=== PATIENT | female | born 1960 | race Caucasian/White ===

== ENCOUNTER → 2016-05-26 | Outpatient (CLI) | payer OTHER ==
[2016-05-26 10:42] LABS: Anisocytosis Slight; CH 25.8; CHCM 32.1; HCT 33.8 % (34.0-46.0); HDW 3.48; Hypochromasia Slight; MCH 26.3 pg (25.0-35.0); MCHC 32.5 g/dL (31.0-37.0); Mean Platelet Volume 6.7; Poikilocytosis Slight; RBC 4.18 m/uL (3.80-5.40); RDW 16.4 % (11.5-15.5)
[2016-05-26 11:06] LABS: Potassium 5.1 mmol/L (3.5-5.1)
== END | disposition home or self-care (01) ==
LOC: LABPAT 10:07
PROVIDERS: ATTEND Internal Medicine Interventional Cardiology
DX: Z01.812 Encounter for preprocedural laboratory examination (principal); I25.10 Atherosclerotic heart disease of native coronary artery without angina pectoris
CPT/HCPCS: 80051; 82565; 84520; 85027

== ENCOUNTER 2016-05-30 06:51 | Day surgery (SDC) | payer OTHER ==
[2016-05-28 09:41] VITALS: BMI 44.8
[~2016-05-30 06:51] MED LIST: ALPRAZolam 0.25 MG TAB PO PRN; ALPRAZolam 0.5 MG TAB PO PRN; ASPIRIN 325 MG TAB PO STA; ATORVASTATIN 80 MG TAB PO STA; NITROGLYCERIN SL TABS 0.4 MG TAB SUBLINGUAL PRN; SODIUM CHLORIDE 0.9% 1,000 ML in EMPTY BAG 1 BAG IV ONE
[2016-05-30 07:32] LABS: Glucose,Whole Blood 171 mg/dL (75-99)
[2016-05-30] MEDS ORDERED: diphenhydrAMINE 50 MG/ML 1 ML VIAL ONE (10:31)
[2016-05-30] MEDS ORDERED: LIDOCAINE 2% INJ 20 MG/ML (20 ML MDV) ONE (10:31)
[2016-05-30] MEDS ORDERED: MIDAZOLAM 2 MG/2 ML VIAL ONE (10:31)
[2016-05-30] MEDS ORDERED: VERAPAMIL 2.5 MG/ML 2 ML AMP ONE (10:32)
[2016-05-30] MEDS ORDERED: SODIUM CHLORIDE 0.9% (PF) 10 ML VIAL ONE (10:32)
[2016-05-30] MEDS ORDERED: amLODIPine 5 MG TAB ONE (10:33)
[2016-05-30] MEDS ORDERED: amLODIPine 5 MG TAB PO ONE (10:37)
[2016-05-30] MEDS ORDERED: diphenhydrAMINE 50 MG/ML 1 ML VIAL IVP ONE (11:15)
[2016-05-30] MEDS ORDERED: MIDAZOLAM 2 MG/2 ML VIAL IV ONE (11:15)
[2016-05-30] MEDS ORDERED: LIDOCAINE 2% INJ 20 MG/ML SQ ONE (11:18)
[2016-05-30] MEDS: VERAPAMIL SYRINGE (5 MG/10 ML) INTRAARTER ONE ×2 (11:20→11:51)
[2016-05-30] MEDS: NITROGLYCERIN 1000MCG/10ML SYRINGE INTRACORON ONE ×2 (11:26→11:43)
[2016-05-30] MEDS ORDERED: BIVALIRUDIN BOLUS 250 MG/50 ML IV ONE (11:31)
[2016-05-30] MEDS ORDERED: BIVALIRUDIN 250 MG in SODIUM CHLORIDE 0.9% 50 ML IV ONE (11:32)
[2016-05-30] MEDS ORDERED: PRASUGREL 10 MG TAB ONE (11:46)
[2016-05-30] MEDS ORDERED: PRASUGREL 10 MG TAB PO ONE (11:50)
[2016-05-30] MEDS ORDERED: IOHEXOL 350 MG/ML 100 ML BOTTLE INJ ONE (11:51)
[2016-05-30] MEDS ORDERED: NITROGLYCERIN SL TABS 0.4 MG TAB SUBLINGUAL ONE (11:55)
[2016-05-30] MEDS ORDERED: MAG HYDROX/AL HYDROX/SIMETH 30 ML CUP PO PRN (11:58)
[2016-05-30] MEDS ORDERED: NITROGLYCERIN SL TABS 0.4 MG TAB SUBLINGUAL PRN ×2 (11:58→12:18)
[2016-05-30] MEDS ORDERED: RX INFO: IV CONTRAST WAS GIVEN 1 EACH MISC MISCELLANE PRN (11:58)
[2016-05-30] MEDS ORDERED: amLODIPine 5 MG TAB PO PRN (12:18)
[2016-05-30 17:04] LABS: Glucose,Whole Blood 142 mg/dL (75-99)
[2016-05-30] MEDS: ACETAMINOPHEN TAB 500 MG TAB PO PRN (17:12)
[2016-05-30] MEDS: SODIUM CHLORIDE 0.9% 1,000 ML IV SCH ×2 (17:13→22:10)
[2016-05-30] MEDS: INSULIN LISPRO (humaLOG) 300 UNIT/3 ML VIAL SQ SCH ×2 (17:50→22:09)
--- NOTE | 2016-05-30 20:09 | PTCA ---
DATE OF SERVICE: 05/30/2016 PROCEDURE: 1. Selective coronary angiography of left coronary artery. 2. Percutaneous transluminal coronary angioplasty and stenting of mid LAD calcified lesion. PERFORMED BY: Dr. Frank Jones. CLINICAL INFORMATION: Mrs. Lita Caba is a patient with a known history of type 2 diabetes, hypertension, hypercholesterolemia and a recent non-ST elevation IA who underwent stenting of distal circumflex and obtuse marginal on May 02. She was brought in for a staged intervention of the LAD, which was 80% mid lesion and a calcified segment. PROCEDURE NOTE: Under local anesthesia and strict aseptic precautions, a 6 Hebrew introducer was placed in the right radial artery. Using a left Susan guide catheter, I performed selective coronary angiography of the left system only. I checked for patency of the circumflex at the site of stenting distally and also the obtuse marginal. Both of these were widely patent. Proximal portion of the obtuse marginal had a 40% to 45% stenosis which was unchanged. Flow was brisk. I then turned my attention to the LAD. A BMW wire was used to cross the lesion. Predilatation was performed using a 12 mm long, 2.5 caliber, NC trek balloon at 12 atmospheres. I then deployed a 12 mm long, 2.75 caliber Xience stent at 13 atmospheres. Patient had chest pain and precordial ST elevation. She received Angiomax bolus and infusion as per protocol. Excellent angiographic result was achieved without complication. The sheath was taken out and TR band applied as per protocol with a good saturation in the fingers of the right hand. She was then sent to the room in stable condition. She received 10 mg of Effient and patient was already on Effient to begin with. She was sent to the telemetry unit uneventfully. Excellent angiographic result without complication was achieved.
--- NOTE | 2016-05-30 20:11 | LTR ---
May 30, 2016 RE: Lita Caba Dear Dr. Juan: Thank you for the opportunity to participate in the care of Mrs. Caba. I am pleased to report to you that her previously stented distal circumflex and obtuse marginal were widely patent. I performed stenting of mid LAD with an excellent angiographic result. I expect that she will be discharged tomorrow if she remains stable. Thank you for your referral and please call for questions. With kindest regards, Sincerely, ANTIONE ROONEY MD
[2016-05-30] MEDS ORDERED: ZOLPIDEM 5 MG TAB PO PRN (21:00)
[2016-05-30 21:55] LABS: Glucose,Whole Blood 149 mg/dL (75-99)
[2016-05-31] MEDS: ACETAMINOPHEN TAB 500 MG TAB PO PRN (04:39)
[2016-05-31 06:04] LABS: Anisocytosis Slight; Basophils # (A) 0.1 k/uL (0-0.2); Basophils % (A) 1 %; CH 26.2; CHCM 33.1; Eosinophils # (A) 0.3 k/uL (0-0.7); Eosinophils % (A) 5 %; HCT 30.5 % (34.0-46.0); HDW 3.43; HGB 9.6 gm/dL (11.4-16.0); Hypochromasia Slight; Luc # (Auto) 0.11; Luc % (Auto) 2; Lymphocytes # (A) 1.2 k/uL (1.0-4.8); Lymphocytes % (A) 20 %; MCH 25.2 pg (25.0-35.0); MCHC 31.6 g/dL (31.0-37.0); MCV 79.6 fL (80.0-100.0); Mean Platelet Volume 7.4; Microcytosis Slight; Monocytes # (A) 0.4 k/uL (0-1.0); Monocytes % (A) 6 %; Neutrophils # (A) 3.8 k/uL (1.3-7.7); Neutrophils % (A) 66 %; Poikilocytosis Slight; RBC 3.83 m/uL (3.80-5.40); RDW 16.8 % (11.5-15.5); WBC 5.7 k/uL (3.8-10.6); WBC (Perox) 6.09
[2016-05-31 06:26] LABS: Potassium 4.7 mmol/L (3.5-5.1)
[2016-05-31 06:29] LABS: Glucose,Whole Blood 152 mg/dL (75-99)
[2016-05-31] MEDS: INSULIN LISPRO (humaLOG) 300 UNIT/3 ML VIAL SQ SCH (06:39)
[2016-05-31] MEDS ORDERED: PRASUGREL 10 MG TAB PO SCH ×2 (09:00)
[2016-05-31] MEDS ORDERED: LISINOPRIL 20 MG TAB PO SCH (09:00)
[2016-05-31] MEDS ORDERED: ASPIRIN 81 MG CHEW PO SCH ×2 (09:00)
[2016-05-31] MEDS ORDERED: METOPROLOL SUCCINATE (ER) 50 MG TAB.ER.24H PO SCH (09:00)
[2016-05-31 09:10] VITALS: BP 161/74; PULSE 76; RESP 18; TEMP 97.5
--- NOTE | 2016-05-31 09:51 | DS ---
DATE OF ADMISSION: 05/30/2016 DATE OF DISCHARGE: 05/31/2016 DIAGNOSIS: 1. Unstable angina. 2. History of prior inferior myocardial infarction on May 02. 3. Type 2 diabetes mellitus. 4. Hypertension. 5. Hypercholesterolemia. Mrs. Caba was initially seen by me on May 02 when I performed stenting of a subtotally occluded circumflex in the setting of a myocardial infarction, which was rather subacute. She also had a significant mid LAD lesion and was brought in today electively for the procedure. Patient was already on aspirin and Effient. Procedure was performed uneventfully yesterday. Coronary angiography from the right radial approach revealed that the circumflex and obtuse marginal were widely patent with a 40% to 50% proximal OM lesion that was stable. The circumflex that was stented was widely patent. I then performed stenting of the mid LAD with a drug-eluting stent. A 2.75 caliber, 12 mm long Xience stent was deployed. Excellent angiographic result was achieved without complication. Postprocedure course was uneventful. Her right radial cath site is clean and dry with a palpable pulse. Her laboratory data suggests that the creatinine is 1.23, which is same as a baseline creatinine. Hemoglobin is low but platelet count is good. EKG revealed sinus mechanism, old inferior FL, no acute changes. The patient is doing very well. Blood pressure today is 150/70, pulse rate is 70 per minute. S1, S2 heard normally. Lungs are clear. Abdomen is soft, nontender. Lower extremities reveal normal pulses. No edema. Central nervous system is normal. There is some small area of rash on her feet. I advised to apply a steroid cream over the counter and also take Benadryl if she has itching, which she does not at this time. Right radial cath site is clean and dry. Discharge instructions regarding activity, diet and medications were given. She will be discharged today and I will see the patient in the office on 06/04/16 at 8:15 a.m. She will be discharged today.
[2016-05-31 11:12] LABS: Hemoglobin A1C 6.8 % (4.2-6.1)
[2016-05-31] MEDS ORDERED: ATORVASTATIN 80 MG TAB PO SCH (21:00)
== END 2016-05-31 10:56 | disposition home or self-care (01) ==
LOC: CATHCVL 06:51 → 6SEL 11:50 → CATHCVL 05-31 10:56
PROVIDERS: ATTEND Internal Medicine Interventional Cardiology
DX: I25.110 Atherosclerotic heart disease of native coronary artery with unstable angina pectoris (principal); Z95.5 Presence of coronary angioplasty implant and graft; I25.2 Old myocardial infarction; I10 Essential (primary) hypertension; E78.5 Hyperlipidemia, unspecified; E78.00 Pure hypercholesterolemia, unspecified; E11.9 Type 2 diabetes mellitus without complications; E66.9 Obesity, unspecified; Z68.42 Body mass index [BMI] 45.0-49.9, adult; Z82.49 Family history of ischemic heart disease and other diseases of the circulatory system; Z79.84 Long term (current) use of oral hypoglycemic drugs; Z79.82 Long term (current) use of aspirin; Z79.899 Other long term (current) drug therapy; Z88.2 Allergy status to sulfonamides
CPT/HCPCS: 94760; 93454; 80048; 83036; 85025; C9600; C1769 ×2; C1887; C1725; C1894 ×2; C1874; J2001; J2250; J1200; Q9967; J0583

== ENCOUNTER → 2016-06-04 | Outpatient (CLI) | payer OTHER ==
[2016-06-04 09:48] LABS: Calcium 9.5 mg/dL (8.4-10.2); Potassium 4.4 mmol/L (3.5-5.1)
== END | disposition home or self-care (01) ==
LOC: LABWHC1 08:31
PROVIDERS: ATTEND Internal Medicine Interventional Cardiology
DX: E11.9 Type 2 diabetes mellitus without complications (principal); I25.10 Atherosclerotic heart disease of native coronary artery without angina pectoris
CPT/HCPCS: 36415; 80048

== ENCOUNTER 2016-09-05 12:26 | Emergency (ER) | payer OTHER ==
[2016-09-05 12:37] VITALS: RESP 20; TEMP 97.8
[2016-09-05] MEDS ORDERED: traMADol 50 MG TAB PO STA (15:43)
[2016-09-05 16:07] VITALS: PULSE 70
--- NOTE | 2016-09-05 16:13 | CT ---
EXAMINATION TYPE: CT abdomen pelvis wo con DATE OF EXAM: 09/05/2016 3:56 PM COMPARISON: NONE INDICATION: Back pain. DLP: 1056.00 mGycm, Automated exposure control for dose reduction was used. CONTRAST: 0 mL of Omnipaque 300. Study performed without Oral Contrast TECHNIQUE: Axial images were obtained from above the diaphragm to the pubic rami in the axial plane a t 5 mm thick sections. Reconstructed images are reviewed on the computer in the coronal plane. FINDINGS: Limited CT sections are obtained the lung bases. The lung bases are clear. CT ABDOMEN: Liver: Normal Spleen: Normal Pancreas: Normal Adrenal glands: The adrenal glands are normal. Gallbladder: Multiple small gallstones fill the gallbladder. Kidneys: No masses are evident. No hydronephrosis is present. No cysts are present. Delayed images were obtained through the kidneys, which remain unremarkable. Aorta: Vascular calcification is within the aorta. Inferior vena cava: Normal. CT PELVIS: Loops of bowel within the abdomen and pelvis are normal. There are loops of bowel which are incom pletely distended or lack oral contrast limiting their evaluation. Appendix: Normal as visualized. Urinary bladder: Normal. Genitourinary structures: Uterus and adnexal regions appear unremarkable. No suspicious fluid collect ions within the pelvis are evident. Osseous structures: No suspicious lytic or sclerotic lesions. Facet changes are within the lumbar spi ne. IMPRESSIONS: 1. Cholelithiasis. 2. Facet changes within the lower lumbar spine. 3. Noncontrast CT abdomen pelvis otherwise appears within normal limits.
[2016-09-05 16:19] LABS: Basophils % (A) 1 %; CH 25.3; CHCM 31.9; Eosinophils # (A) 0.2 k/uL (0-0.7); Eosinophils % (A) 3 %; HCT 32.7 % (34.0-46.0); HDW 3.21; HGB 10.5 gm/dL (11.4-16.0); Hypochromasia Slight; Luc % (Auto) 3; Lymphocytes # (A) 1.6 k/uL (1.0-4.8); Lymphocytes % (A) 19 %; MCH 25.6 pg (25.0-35.0); MCHC 32.1 g/dL (31.0-37.0); MCV 79.7 fL (80.0-100.0); Mean Platelet Volume 7.2; Monocytes # (A) 0.3 k/uL (0-1.0); Monocytes % (A) 4 %; Neutrophils # (A) 5.7 k/uL (1.3-7.7); Neutrophils % (A) 71 %; RDW 15.7 % (11.5-15.5); WBC 8.1 k/uL (3.8-10.6); WBC (Perox) 7.91
[2016-09-05 16:27] LABS: Appearance,Urine Clear (Clear); Bilirubin,Urine Negative (Negative); Glucose,Urine (UA) Negative (Negative); Ketones,Urine Negative (Negative); Leukocyte Esterase,Urine Trace (Negative); Mucus,Urine Rare /hpf; Nitrite,Urine Negative (Negative); Particle Count 2217; Protein,Urine Negative (Negative); RBC,Urine <1 /hpf (0-5); Specific Gravity,Urine 1.009 (1.001-1.035); Squamous Epithelial Cell,Urine 2 /hpf (0-4); UA Billing (MACRO vs. MICRO) MICRO; Urobilinogen,Urine <2.0 mg/dL (<2.0); WBC,Urine 2 /hpf (0-5)
--- NOTE | 2016-09-05 16:35 | ED ---
Back Pain HPI - General Chief Complaint: Back Pain/Injury Stated Complaint: Back Pain Time Seen by Provider: 09/05/16 15:29 Source: patient, RN notes reviewed Limitations: no limitations - History of Present Illness Initial Comments: 55-year-old female presents emergency Department with chief complaint of back pain. Patient states that has been present for 2 weeks getting worse. Patient has seen primary care physician multiple times for this. Patient has had ultrasound of her kidneys, gallbladder. Patient states she has low back pain no upper or mid back pain. Patient states that it is worse with movement. Patient was seen her patient had urinalysis, EKG and was given tramadol. Patient states the tramadol helps. Patient denies any bowel, bladder incontinence or retention. Denies any saddle anesthesias or lower shunted paresthesias. Denies any dysuria, hematuria or increased frequency of urination. Patient states she has no history of back pain of this nature. - Related Data Home Medications Medication Instructions Recorded Confirmed Chromium Picolinate(Unknown) 1 tab PO DAILY 05/02/16 09/05/16 Lisinopril [Zestril] 20 mg PO DAILY 05/02/16 09/05/16 Multivitamins, Thera [Multivitamin 1 tab PO DAILY 05/02/16 09/05/16 (formulary)] Aspirin EC [Ecotrin Low Dose] 81 mg PO DAILY 05/28/16 09/05/16 Atorvastatin [Lipitor] 80 mg PO HS 05/28/16 09/05/16 amLODIPine [Norvasc] 5 mg PO DAILY PRN 05/28/16 09/05/16 Diazepam [Valium] 10 mg PO TID 09/05/16 09/05/16 traMADol HCL [Ultram] 50 mg PO Q4HR PRN 09/05/16 09/05/16 Previous Rx's Medication Instructions Recorded Metoprolol Succinate (ER) [Toprol 50 mg PO DAILY #90 tab.er.24h 05/03/16 XL] Nitroglycerin Sl Tabs [Nitrostat] 0.4 mg SUBLINGUAL Q5M PRN #25 tab 05/03/16 Prasugrel [Effient] 10 mg PO DAILY #90 tab 05/03/16 metFORMIN HCL [Glucophage] 1,000 mg PO BID #0 05/31/16 traMADol HCl [Ultram] 50 mg PO Q6H PRN #30 tab 09/05/16 Allergies Allergy/AdvReac Type Severity Reaction Status Date / Time Sulfa (Sulfonamide Allergy Rash/Hives Verified 09/05/16 15:59 Antibiotics) DYES AdvReac KIDNEYS Uncoded 09/05/16 15:59 Review of Systems ROS Statement: Those systems with pertinent positive or pertinent negative responses have been documented in the HPI. ROS Other: All systems not noted in ROS Statement are negative. Past Medical History Past Medical History: Diabetes Mellitus, GERD/Reflux, Hyperlipidemia, Hypertension, Myocardial Infarction (RI), Osteoarthritis (OA), Pneumonia Additional Past Medical History / Comment(s): 05-02-16 NSTEMI, ENLARGED HEART, PALPATAIONS, BRONCHITIS, "HEARTBURN" Last Myocardial Infarction Date:: 05/02/16 History of Any Multi-Drug Resistant Organisms: None Reported Past Surgical History: Section, Heart Catheterization With Stent Additional Past Surgical History / Comment(s): 2 C-SECTIONS, 05-02-16 HEART CATH WITH STENTS, EXCISION OF LIPOMA LEFT LEG Past Anesthesia/Blood Transfusion Reactions: No Reported Reaction Date of Last Stent Placement:: 05/02/17 Past Psychological History: No Psychological Hx Reported Smoking Status: Never smoker Past Alcohol Use History: Rare Past Drug Use History: None Reported - Past Family History Mother Family Medical History: Coronary Artery Disease (CAD), Diabetes Mellitus, Renal Disease Additional Family Medical History / Comment(s): 5 VESSEL CABG Father Family Medical History: Coronary Artery Disease (CAD), Hypertension Additional Family Medical History / Comment(s): CARDIAC STENTS General Exam Limitations: no limitations General appearance: alert, in no apparent distress Head exam: Present: atraumatic, normocephalic, normal inspection Respiratory exam: Present: normal lung sounds bilaterally. Absent: respiratory distress, wheezes, rales, rhonchi, stridor Cardiovascular Exam: Present: regular rate, normal rhythm, normal heart sounds. Absent: systolic murmur, diastolic murmur, rubs, gallop, clicks GI/Abdominal exam: Present: soft, normal bowel sounds. Absent: distended, tenderness, guarding, rebound, rigid Extremities exam: Present: normal inspection, full ROM, normal capillary refill. Absent: tenderness, pedal edema, joint swelling, calf tenderness Back exam: Present: full ROM, tenderness (Moderate tenderness with palpation to lumbar region L3 through L5), paraspinal tenderness. Absent: vertebral tenderness Neurological exam: Present: alert, oriented X3, CN II-XII intact, reflexes normal. Absent: motor sensory deficit Skin exam: Present: warm, dry, intact, normal color. Absent: rash Course Vital Signs 09/05/16 09/05/16 12:35 16:07 Temperature 97.8 F Pulse Rate 62 70 Respiratory 20 20 Rate Blood Pressure 145/67 142/78 O2 Sat by Pulse 100 97 Oximetry Medical Decision Making - Medical Decision Making 55-year-old female presents emergency department for back pain. Patient CT shows arthritic changes facet changes of her lumbar spine. This is consistent with her pain. Patient's remaining 62 within normal limits. Patient has no acute changes on lab work history of anemia and renal insufficiency. Patient will be discharged with tramadol follow-up with Dr. Jacinto. Patient agrees this plan. - Lab Data Result diagrams: 09/05/16 16:00 09/05/16 16:00 Lab Results 09/05/16 09/05/16 09/05/16 Range/Units 16:00 16:00 16:00 WBC 8.1 (3.8-10.6) k/uL RBC 4.10 (3.80-5.40) m/uL Hgb 10.5 L (11.4-16.0) gm/dL Hct 32.7 L (34.0-46.0) % MCV 79.7 L (80.0-100.0) fL MCH 25.6 (25.0-35.0) pg MCHC 32.1 (31.0-37.0) g/dL RDW 15.7 H (11.5-15.5) % Plt Count 246 (150-450) k/uL Neutrophils % 71 % Lymphocytes % 19 % Monocytes % 4 % Eosinophils % 3 % Basophils % 1 % Neutrophils # 5.7 (1.3-7.7) k/uL Lymphocytes # 1.6 (1.0-4.8) k/uL Monocytes # 0.3 (0-1.0) k/uL Eosinophils # 0.2 (0-0.7) k/uL Basophils # 0.0 (0-0.2) k/uL Hypochromasia Slight Sodium 141 (137-145) mmol/L Potassium 4.8 (3.5-5.1) mmol/L Chloride 109 H (98-107) mmol/L Carbon Dioxide 21 L (22-30) mmol/L Anion Gap 11 mmol/L BUN 34 H (7-17) mg/dL Creatinine 1.50 H (0.52-1.04) mg/dL Est GFR (MDRD) Af Amer 44 (>60 ml/min/1.73 sqM) Est GFR (MDRD) Non-Af 36 (>60 ml/min/1.73 sqM) Glucose 103 H (74-99) mg/dL Calcium 9.8 (8.4-10.2) mg/dL Total Bilirubin 0.8 (0.2-1.3) mg/dL AST 22 (14-36) U/L ALT 32 (9-52) U/L Alkaline Phosphatase 74 (38-126) U/L Total Protein 7.2 (6.3-8.2) g/dL Albumin 4.1 (3.5-5.0) g/dL Amylase 57 (30-110) U/L Lipase 233 (23-300) U/L Urine Color Light Yellow Urine Appearance Clear (Clear) Urine pH 5.0 (5.0-8.0) Ur Specific [place] 1.009 (1.001-1.035) Urine Protein Negative (Negative) Urine Glucose (UA) Negative (Negative) Urine Ketones Negative (Negative) Urine Blood Negative (Negative) Urine Nitrite Negative (Negative) Urine Bilirubin Negative (Negative) Urine Urobilinogen <2.0 (<2.0) mg/dL Ur Leukocyte Esterase Trace H (Negative) Urine RBC <1 (0-5) /hpf Urine WBC 2 (0-5) /hpf Ur Squamous Epith Cells 2 (0-4) /hpf Hyaline Casts 3 H (0-2) /lpf Urine Mucus Rare H (None) /hpf Disposition Clinical Impression: Lumbar back pain Disposition: HOME SELF-CARE Condition: Stable Instructions: Acute Low Back Pain (ED) Additional Instructions: Please return to the Emergency Department if symptoms worsen or any other concerns. Prescriptions: traMADol HCl [Ultram] 50 mg PO Q6H PRN #30 tab PRN Reason: Pain Referrals: Jeff Juan MD [Primary Care Provider] - 1-2 days Blaine Machado DO [Doctor of Osteopathic Medicine] - 1-2 days Time of Disposition: 16:50
[2016-09-05 16:36] LABS: Calcium 9.8 mg/dL (8.4-10.2); Potassium 4.8 mmol/L (3.5-5.1); Total Bilirubin 0.8 mg/dL (0.2-1.3); Total Protein 7.2 g/dL (6.3-8.2)
[2016-09-05 16:56] VITALS: BP 150/71
== END 2016-09-05 16:56 | disposition home or self-care (01) ==
LOC: EC 12:26
DX: M54.5 Low back pain (principal); E11.9 Type 2 diabetes mellitus without complications; E78.5 Hyperlipidemia, unspecified; I10 Essential (primary) hypertension; I25.2 Old myocardial infarction; M19.90 Unspecified osteoarthritis, unspecified site; Z79.82 Long term (current) use of aspirin; Z79.899 Other long term (current) drug therapy; Z88.2 Allergy status to sulfonamides; Z91.048 Other nonmedicinal substance allergy status; Z95.5 Presence of coronary angioplasty implant and graft
CPT/HCPCS: 36415; 74176; 80053; 81001; 82150; 83690; 85025; 93005; 99284

== ENCOUNTER → 2017-03-04 | Outpatient (CLI) | payer OTHER ==
[2017-03-04 11:24] LABS: Calcium 9.2 mg/dL (8.4-10.2); Potassium 5.1 mmol/L (3.5-5.1)
[2017-03-04 12:19] LABS: Hemoglobin A1C 6.9 % (4.2-6.1)
== END | disposition home or self-care (01) ==
LOC: LABWHC1 10:23
PROVIDERS: ATTEND Internal Medicine Interventional Cardiology
DX: E11.9 Type 2 diabetes mellitus without complications (principal); I25.10 Atherosclerotic heart disease of native coronary artery without angina pectoris
CPT/HCPCS: 36415; 80048; 83036